=== PATIENT | female | born 1965 | race Caucasian/White ===

== ENCOUNTER → 2018-11-05 11:58 | Outpatient (CLI) | payer OTHER, SELFPAY ==
[2018-11-08 18:38] LABS: Alternaria tenuis <0.10 kU/L (Class 0); Ash, White <0.10 kU/L (Class 0); Aspergillus fumigatus 0.15 kU/L (Class 0/I); Bermuda Grass <0.10 kU/L (Class 0); Birch <0.10 kU/L (Class 0); Black Walnut <0.10 kU/L (Class 0); Cat Hair / Dander,Stand <0.10 kU/L (Class 0); Cedar, Mountain <0.10 kU/L (Class 0); Cladosporium herbarum <0.10 kU/L (Class 0); Cockroach, American <0.10 kU/L (Class 0); Cottonwood <0.10 kU/L (Class 0); D farinae Mite <0.10 kU/L (Class 0); D pteronyssinus <0.10 kU/L (Class 0); Dog Epithelia <0.10 kU/L (Class 0); Elm, American White <0.10 kU/L (Class 0); Immunoglobulin E 16 IU/mL (0-100); Maple/Box Elder <0.10 kU/L (Class 0); Mulberry, White <0.10 kU/L (Class 0); Oak, White <0.10 kU/L (Class 0); Pecan <0.10 kU/L (Class 0); Penicillium Notatum <0.10 kU/L (Class 0); Pigweed, Rough <0.10 kU/L (Class 0); Ragweed, Short/Common <0.10 kU/L (Class 0); Russian Thistle <0.10 kU/L (Class 0); Sheep Sorrel <0.10 kU/L (Class 0); Sycamore, American <0.10 kU/L (Class 0); Timothy Grass <0.10 kU/L (Class 0)
[2018-11-08 20:06] LABS: Clam <0.10 kU/L (Class 0); Codfish <0.10 kU/L (Class 0); Corn <0.10 kU/L (Class 0); Egg, White <0.10 kU/L (Class 0); Milk (Cow) <0.10 kU/L (Class 0); Peanut <0.10 kU/L (Class 0); SCALLOP <0.10 kU/L (Class 0); SESAME SEED <0.10 kU/L (Class 0); Shrimp <0.10 kU/L (Class 0); Soybean <0.10 kU/L (Class 0); Walnut, (Food) <0.10 kU/L (Class 0); Wheat <0.10 kU/L (Class 0)
[2018-11-09 11:25] LABS: Mouse Urine <0.10 kU/L (Class 0)
[2018-11-09 11:27] LABS: Pork <0.10 kU/L (Class 0)
--- OUTSIDE RECORDS SUMMARY | 2019-01-10 08:06 | XMS RPT_ITS ---
:1965 Author Organization OHIP Care Team Providers Name Role Phone ARMANDO ANSARI CNP Attending Unavailable CALR REIS, GERSON H. Primary Care Unavailable RUFINO ANSARI CNPBY E. Attending Unavailable CARL REIS, GERSON Dickey Primary Care Unavailable ELAN GUZMÁN, ARMANDO Cortez Attending Unavailable CARL REIS, GERSON Dickey Primary Care Unavailable [facility], [place] MIGUEL ANGEL BeckettNico Attending Unavailable CARL REIS, GERSON Dickey Primary Care Unavailable [facility], [place]. MICHELLE Hunter Attending Unavailable CARL REIS, GERSON Dickey Primary Care Unavailable TEQUILA CASTRO MD Attending Unavailable [facility], Nico MIGUEL ANGELRAY Harrison Primary Care Unavailable ARMANDO ANSARI ([facility]) Attending Unavailable ARMANDO ANSARI ([facility]) Referring Unavailable ARMANDO ANSARI ([facility]) Attending Unavailable ARMANDO ANSARI ([facility]) Referring Unavailable Rafael Salcedo Attending Unavailable Rafael Salcedo Referring Unavailable Miguel Angel Doherty SOUS CHEF KITCHEN MANAGER-C Primary Care Unavailable PROBLEMS PROBLEMS DATE TYPE CONDITION / CODE ATTENDING STATUS SOURCE 11/05/2018 Unknown T78.40XA - Allergy, Matias Rafael Active [place] unspecified, initial Community encounter / Hospital T78.40XA(ICD-10) Repository 02/28/2018 Admitting Mixed hyperlipidemia [facility], Active [facility] Diagnosis / E78.2(ICD-10) . MIGUEL ANGEL S. [place] Repository 02/28/2018 Admitting Hypothyroidism, [facility], Active [facility] Diagnosis unspecified / [place]. MIGUEL ANGEL S. [facility] E03.9(ICD-10) Repository 11/28/2017 Active Unknown / ELAN, Active [place] JARAD(Unknown) ARMANDO (SURFACE MINER) [facility] [place] Repository PROCEDURES PROCEDURES No Procedure Records FoundRESULTS RESULTS ALLERGEN RESP. AREA 5 Collected: 11/05/2018 Status: F Source: [place] [facility] TYPE CODE TESTS RESULT OUT OF RANGE REFERENCE UNITS LAB L5500.8000 0-100 IU/mL Normal TOTAL igE 16 LAB L5500.9900 . Normal RAST COMMENT Comment Result Comment: Levels of Specific IgE Class Description of Class ----- < 0.10 0 Negative 0.10 - 0.31 0/I Equivocal/Low 0.32 - 0.55 I Low 0.56 - 1.40 II Moderate 1.41 - 3.90 III High 3.91 - 19.00 IV Very High 19.01 - 100.00 V Very High >100.00 Very High LAB L5510.0040 Class 0 kU/L CAT HAIR/DANDER Normal <0.10 LAB L5510.0070 Class 0 kU/L DOG EPITHELIA Normal <0.10 LAB L5520.0020 Class 0 kU/L D FARINAE MITE Normal <0.10 LAB L5520.0030 Class 0 kU/L D PTERONYSSINUS Normal <0.10 LAB L5540.0020 Class 0 kU/L BERMUDA GRASS Normal <0.10 LAB L5540.0190 Class 0 kU/L LANCE GRASS Normal <0.10 LAB L5550.0020 Class 0 kU/L ALTERNARIA TEN Normal <0.10 LAB L5550.0040 Class 0/I kU/L ASPERGILLUS FUM High 0.15 LAB L5550.0140 Class 0 kU/L CLADOSPOR HERB Normal <0.10 LAB L5550.0340 Class 0 kU/L PEN Notatum Normal <0.10 LAB L5555.0380 Class 0 kU/L COCKROACH,AMER Normal <0.10 LAB L5555.0410 Class 0 kU/L Mouse Urine Normal <0.10 Result Comment: Performed at: [address] [id number] [employer]: Kellen Talavera MD, Phone: [phone] LAB L5560.0050 Class 0 kU/L YANELI, Normal WHITE <0.10 LAB L5560.0100 Class 0 kU/L BIRCH Normal <0.10 LAB L5560.0110 Class 0 kU/L CEDAR, Normal MOUNTAIN <0.10 LAB L5560.0140 Class 0 kU/L Normal COTTONWOOD <0.10 LAB L5560.0170 Class 0 kU/L ELM,AMER Normal WHITE <0.10 LAB L5560.0310 Class 0 kU/L Normal MAPLE/BOX ELDER <0.10 LAB L5560.0371 Class 0 kU/L Normal MULBERRY, WHITE <0.10 LAB L5560.0400 Class 0 kU/L OAK, Normal WHITE <0.10 LAB L5560.0440 Class 0 kU/L PECAN Normal <0.10 LAB L5560.0550 Class 0 kU/L Normal SYCAMORE, AMER <0.10 LAB L5560.0570 Class 0 kU/L BLACK Normal WALNUT <0.10 LAB L5580.0210 Class 0 kU/L PIGWEED, Normal ROUGH <0.10 LAB L5580.0260 Class 0 kU/L RAGWEED Normal SH/COM <0.10 LAB L5580.0320 Class 0 kU/L SHEEP Normal SORREL <0.10 LAB L5580.0360 Class 0 kU/L JORDANIAN Normal THISTLE <0.10 Performed By: #### L5500.0700 #### [facility] (refer to report for specific site) refer to report for address and phone number ALLERGEN, FOOD PROFILE Collected: 11/05/2018 Status: F Source: [place] 12:23 PM [facility] REPOSITORY TYPE CODE TESTS RESULT OUT OF RANGE REFERENCE UNITS LAB L5500.3002 Class 0 kU/L Normal MILK (COW) <0.10 LAB L5500.3004 Class 0 kU/L Normal WHEAT <0.10 LAB L5500.3008 Class 0 kU/L Normal CORN <0.10 LAB L5500.3013 Class 0 kU/L Normal PEANUT <0.10 LAB L5500.3014 Class 0 kU/L Normal SOYBEAN <0.10 LAB L5500.8100 . Normal RAST COMMENT Comment Result Comment: Levels of Specific IgE Class Description of Class ----- < 0.10 0 Negative 0.10 - 0.31 0/I Equivocal/Low 0.32 - 0.55 I Low 0.56 - 1.40 II Moderate 1.41 - 3.90 III High 3.91 - 19.00 IV Very High 19.01 - 100.00 V Very High >100.00 Very High LAB L5530.0430 Class 0 kU/L Normal CLAM <0.10 LAB L5530.0460 Class 0 kU/L Normal CODFISH <0.10 LAB L5530.0570 Class 0 kU/L Normal EGG,WHITE <0.10 LAB L5530.1430 Class 0 kU/L Normal Scallop <0.10 LAB L5530.1440 Class 0 kU/L Normal Sesame Seed <0.10 LAB L5530.1450 Class 0 kU/L Normal SHRIMP <0.10 LAB L5530.1650 Class 0 kU/L Normal WALNUT <0.10 Performed By: #### L5500.0410, L5530.1319 #### [facility] (refer to report for specific site) refer to report for address and phone number PORK Collected: 11/05/2018 Status: F Source: [place] 12:23 PM [facility] REPOSITORY TYPE CODE TESTS RESULT OUT OF RANGE REFERENCE UNITS LAB L5530.1320 Class 0 kU/L Normal PORK <0.10 Result Comment: Performed at: [facility] [address] [id number] [employer]: Kellen Talavera MD, Phone: [phone] Performed By: #### L5500.0410, L5530.1319 #### [facility] (refer to report for specific site) refer to report for address and phone number CNOVSP Observed: 05/29/2018 Status: COMPLETED Source: [place] 10:[address] [facility] REPOSITORY Visit (SP) Office (HEMAWS) NAOMI CASTRO ([id number]) 1965 F Date Time Provider Department 05/29/18 10:00 AM ARMANDO ANSARI ([facility]) SIMONE During your visit today, we recorded the following information about you: Temperature Pulse Blood pressure Weight 97.9 degrees 90/minute 133/79 68 kg Armando Ansari APRN.CNP 05/29/2018 1:27 PM Signed Chief Complaint Patient presents with: Established Patient HPI: Naomi Castro is a 52 year old female who presents here today for follow up breast cancer. H/o abnormality of the right breast discovered on a screening mammogram performed in July 2012. Was seen by a general surgeon and biopsy done. ?? Pathology--Invasive carcinoma. Was told would need b/l mastectomy. Patient sought second opinion. ?? An MRI of the breasts reveal the left breast to be normal. There was a 0.7 x 1.1 x 0.8 cm oval focus of enhancement in the right breast at the 6:00 middle depth. ?? Underwent partial mastectomy on 09/24/12. The pathology revealed that there was an invasive moderately differentiated ductal carcinoma with associated high-grade ductal carcinoma in situ, solid type. The tumor measured 8 mm. The inferior and lateral margins were positive for tumor and additional excision of the right superior and right medial margins revealed benign breast tissue. A total of 4 lymph nodes 2 of which were labeled sentinel lymph nodes, were all negative for disease. Additional pathologic specimens included right posterior margins at the 6 and 7:00 positions. Both revealed benign breast tissue. A right lateral margin reexcision revealed DCIS within a half a millimeter of the resected margin. Estrogen receptors were quantified at 80%. Progesterone receptors were negative and HER-2 was non-amplified by fish testing with a HER-2 to CEP 17 ratio 1.3-1. ?? The patient underwent reexcision of the right margins on 10/07/12. The pathology revealed that the right anterior margin contained biopsy site changes there were negative for residual malignancy. The lateral margin showed biopsy site changes and a few scattered ducts with residual DCIS approaching a half a millimeter from the inked margin. The inferior margin showed biopsy changes negative for residual malignancy in the right reexcision inferior/lateral margin revealed no evidence of malignancy. Had been on estradiol for 4 years. ?? Completed AC/Taxol. Radiation:04/13/13 to 05/29/13. ?? Started arimidex 06/01/2013. Stopped April 2015 d/t body aches/pains. ?? Current therapy:tamoxifen. ? H/o breast reduction 2004. ? No complaints. Pt. had breast MRI done at [facility] December 2017-Neg. per pt. report. ? Appetite:good Energy level:pretty good babysits her granddaughter 4 days per week Denies fevers or recent illness. Resp:denies cough or sob, +congestion?with year round allergies Cardiac:denies chest pain/palpitations GI:denies abd pain, n/v, moving bowels regularly :denies dysuria/hematuria Extrem:denies pain to back/bones/joints, occ. L leg sciatica Endo:+hot flashes they are less but down to one per day Neuro:denies neuropathy Skin:denies rashes/lesions Heme:denies bleeding The ROS is otherwise negative. Past medical history, appointments, medications, allergies reviewed. No changes. EXAM: BP 133/79 Pulse 90 Temp 36.6 ?C (97.9 ?F) (Temporal Artery) Wt 68 kg (150 lb) BMI 28.11 kg/m? APPEARANCE Well appearing, alert, in no acute distress, well- hydrated, well nourished. HEART RRR with normal S1 and S2, no murmurs LUNG clear to auscultation BREAST FEMALE R 2cm tender mass at 7 o'clock-stable (negative on breast MRI and US), L no mass/nodule LYMPH NODES No cervical lymphadenopathy, No supraclavicular lymphadenopathy and No axillary lymphadenopathy. ABDOMEN bowel sounds normoactive, no bruits, soft, non-tender, non-distended, without organomegaly or palpable masses EXTREMITIES No edema NEURO Awake, alert and oriented x 3, Normal gait and No involuntary motions. SKIN Skin color, texture, turgor normal, no suspicious rashes or lesions ASSESSMENT/PLAN: 1. Invasive ductal carcinoma of right breast in female (HCC) - ICD9: 174.9, ICD10: C50.911 (primary diagnosis) pT1b N0 (0 of 4 LNs) MX ER positive, NH negative, HER2 non- amplified invasive ductal carcinoma of the right breast. 2. Encounter for screening mammogram for high-risk patient - ICD9: V76.11, ICD10: Z12.31 - No new findings on exam. - Tolerating tamoxifen well. Continue. Will complete 5 years of combined AI/tamoxifen therapy at the end of this month. - Please have pt. sign med. release to obtain breast MRI results from [facility]. - ?Yearly screening mammogram due in Jun. Pt. prefers to have this done at [facility]. - ?Follow up as needed-pending Mammogram. Pt. will follow up with PCP for yearly mammogram/CBE. - ?Pt. aware to call office with any questions/concerns. The patient indicates understanding of these issues and agrees with the plan. Armando Ansari APRN.SURFACE MINER Referring Provider: ARMANDO ANSARI ([facility]) [[id number]] Allergies As of Date: 05/29/2018 Noted Allergy Reaction ADHESIVE TAPE (ROSINS) 12/23/2012 2 - Rash ASPIRIN 10/28/2012 4 - Hives 7 - Swelling BIAXIN (CLARITHROMYCIN) 05/30/2016 4 - Hives 7 - Swelling CEFTIN (CEFUROXIME AXETIL) 10/28/2012 8 - GI Upset 11 - Vomiting IBUPROFEN 10/28/2012 4 - Hives 7 - Swelling LATEX 10/28/2012 2 - Rash LEVAQUIN (LEVOFLOXACIN) 10/28/2012 7 - Swelling MUSHROOM COMBINATION NO.1 10/28/2012 7 - Swelling Comments: Difficulty breathing PENICILLINS 10/28/2012 4 - Hives 7 - Swelling SHELLFISH 10/28/2012 7 - Swelling Comments: Difficulty breathing SULFA (SULFONAMIDE ANTIBIOTICS) 08/03/2008 2 - Rash VICODIN (HYDROCODONE-ACETAMINOPHE*10/28/2012 4 - Hives 7 - Swelling Date Reviewed: 05/29/2018 Reviewed by: Armando ([facility]) Elan - Fully Assessed Reason for Visit: Established Patient [175] Primary Visit Diagnosis:Invasive ductal carcinoma of right breast in female (HCC) [C50.911] Other Visit Diagnosis:Encounter for screening mammogram for high-risk patient [Z12.31] Order(s):ergocalciferol, vitamin D2, (VITAMIN D) 50,000 unit capsuleTake 1 capsule by mouth once each week.Disp: 12 capsuleRfl: 3 DALTON SCREENING W PAULIE [[id number]] Order #: [id number] FUTURE Follow-up and Disposition History Recorded Prescriptions as of 05/29/2018 Sig: CALCIUM + D ORAL Take 1 tablet by mouth once d* LEVOTHYROXINE 88 MCG TABLET Take 88 mcg by mouth once cinhtia* ALENDRONATE 70 MG TABLET Take 70 mg by mouth once each* ERGOCALCIFEROL (VITAMIN D2) 5* Take 1 capsule by mouth once * TAMOXIFEN 20 MG TABLET take 1 tablet by mouth once d* MOMETASONE 220 MCG (120 DOSES* Inhale as instructed as need* FLAXSEED 1,000 MG CAPSULE Take 1 capsule by mouth once * FLUTICASONE 50 MCG/ACTUATION * Use 2 Sprays in the nose twic* ACETAMINOPHEN 500 MG TABLET Take 1,000 mg by mouth every * ANN-D 24 HOUR 180 MG-240 * Take one(1) tablet daily. Medication notes this encounter CALTRATE GUMMY BITES ORAL >> Austen Jean Baptiste MA 05/29/2018 9:53 AM >> AUSTEN JEAN BAPTISTE MA [place] May 29, 2018 9:53 AM Not taking LEVOTHYROXINE 75 MCG TABLET >> Austen Jean Baptiste MA 05/29/2018 9:53 AM >> AUSTEN JEAN BAPTISTE MA Alvina May 29, 2018 9:53 AM No longer taking this strength. Problem List As Of Date 05/29/2018 Noted Resolved FEMALE STRESS INCONTINENCE [N39.3] INVALID FOR* Breast cancer [C50.919] INVALID FOR* Drug induced neutropenia [D70.2] INVALID FOR* Vitamin D deficiency [E55.9] INVALID FOR* Invasive ductal carcinoma of right breast in fe*INVALID FOR* Encounter Status:Closed by ARMANDO ANSARI CNP on 05/29/18 PROGRESS Observed: 05/29/2018 Status: COMPLETED Source: [place] 9:[address] [facility] REPOSITORY O ID: [id number] Author: Armando Colón) Elan Service: (none) Author Type: Nurse Practitioner Type: Progress Notes Filed: 05/29/2018 1:27 PM Note Text: Chief Complaint Patient presents with: Established Patient HPI: Naomi Castro is a 52 year old female who presents here today for follow up breast cancer. H/o abnormality of the right breast discovered on a screening mammogram performed in July 2012. Was seen by a general surgeon and biopsy done. ?? Pathology--Invasive carcinoma. Was told would need b/l mastectomy. Patient sought second opinion. ?? An MRI of the breasts reveal the left breast to be normal. There was a 0.7 x 1.1 x 0.8 cm oval focus of enhancement in the right breast at the 6:00 middle depth. ?? Underwent partial mastectomy on 09/24/12. The pathology revealed that there was an invasive moderately differentiated ductal carcinoma with associated high-grade ductal carcinoma in situ, solid type. The tumor measured 8 mm. The inferior and lateral margins were positive for tumor and additional excision of the right superior and right medial margins revealed benign breast tissue. A total of 4 lymph nodes 2 of which were labeled sentinel lymph nodes, were all negative for disease. Additional pathologic specimens included right posterior margins at the 6 and 7:00 positions. Both revealed benign breast tissue. A right lateral margin reexcision revealed DCIS within a half a millimeter of the resected margin. Estrogen receptors were quantified at 80%. Progesterone receptors were negative and HER-2 was non-amplified by fish testing with a HER-2 to CEP 17 ratio 1.3-1. ?? The patient underwent reexcision of the right margins on 10/07/12. The pathology revealed that the right anterior margin contained biopsy site changes there were negative for residual malignancy. The lateral margin showed biopsy site changes and a few scattered ducts with residual DCIS approaching a half a millimeter from the inked margin. The inferior margin showed biopsy changes negative for residual malignancy in the right reexcision inferior/lateral margin revealed no evidence of malignancy. Had been on estradiol for 4 years. ?? Completed AC/Taxol. Radiation:04/13/13 to 05/29/13. ?? Started arimidex 06/01/2013. Stopped April 2015 d/t body aches/pains. ?? Current therapy:tamoxifen. ? H/o breast reduction 2004. ? No complaints. Pt. had breast MRI done at [facility] December 2017-Neg. per pt. report. ? Appetite:good Energy level:pretty good babysits her granddaughter 4 days per week Denies fevers or recent illness. Resp:denies cough or sob, +congestion?with year round allergies Cardiac:denies chest pain/palpitations GI:denies abd pain, n/v, moving bowels regularly :denies dysuria/hematuria Extrem:denies pain to back/bones/joints, occ. L leg sciatica Endo:+hot flashes they are less but down to one per day Neuro:denies neuropathy Skin:denies rashes/lesions Heme:denies bleeding The ROS is otherwise negative. Past medical history, appointments, medications, allergies reviewed. No changes. EXAM: BP 133/79 Pulse 90 Temp 36.6 ?C (97.9 ?F) (Temporal Artery) Wt 68 kg (150 lb) BMI 28.11 kg/m? APPEARANCE Well appearing, alert, in no acute distress, well-hydrated, well nourished. HEART RRR with normal S1 and S2, no murmurs LUNG clear to auscultation BREAST FEMALE R 2cm tender mass at 7 o'clock-stable (negative on breast MRI and US), L no mass/nodule LYMPH NODES No cervical lymphadenopathy, No supraclavicular lymphadenopathy and No axillary lymphadenopathy. ABDOMEN bowel sounds normoactive, no bruits, soft, non-tender, non-distended, without organomegaly or palpable masses EXTREMITIES No edema NEURO Awake, alert and oriented x 3, Normal gait and No involuntary motions. SKIN Skin color, texture, turgor normal, no suspicious rashes or lesions ASSESSMENT/PLAN: 1. Invasive ductal carcinoma of right breast in female (HCC) - ICD9: 174.9, ICD10: C50.911 (primary diagnosis) pT1b N0 (0 of 4 LNs) MX ER positive, NH negative, HER2 non-amplified invasive ductal carcinoma of the right breast. 2. Encounter for screening mammogram for high-risk patient - ICD9: V76.11, ICD10: Z12.31 - No new findings on exam. - Tolerating tamoxifen well. Continue. Will complete 5 years of combined AI/tamoxifen therapy at the end of this month. - Please have pt. sign med. release to obtain breast MRI results from [facility]. - ?Yearly screening mammogram due in Jun. Pt. prefers to have this done at [facility]. - ?Follow up as needed-pending Mammogram. Pt. will follow up with PCP for yearly mammogram/CBE. - ?Pt. aware to call office with any questions/concerns. The patient indicates understanding of these issues and agrees with the plan. Armando Ansari APRN.SURFACE MINER TSH Collected: 05/08/2018 Status: F Source: [facility] 8:37 AM [facility] REPOSITORY TYPE CODE TESTS RESULT OUT OF RANGE REFERENCE UNITS LAB TSH(LOINC) 0.27-4.20 mcIU/mL High TSH 4.85 Result Comment: Above normal(expected)range Performed By: #### TSH #### [address] [place], [place] [address] MRI BREAST W/ + W/O Observed: 03/06/2018 Status: F Source: [facility] CONTRAST BILATERAL 12:45 PM [facility] REPOSITORY ORIGINAL FROM: [facility] [address] [place] [address] PROCEDURE FOR: NAOMI CASTRO [address] [place] [address] Home: PID#: [id number] Exam#: [id number] : 1965 Age: 52 TO: ARMANDO ANSARI SURFACE MINER [address] [place] [address] #[id number] BREAST MRI OF BOTH BREASTS - WITH CAD: 03/06/2018 CLINICAL: INVASIVE DUCTAL CARCINOMA OF RIGHT BREAST. Comparison is made to exams dated: 12/05/2017 ultrasound, 12/05/2017 mammogram, and 06/19/2017 mammogram - [facility]. Gadolinium contrast calibrated to patient weight was injected. Axial T2 and pre and post contrast T1 images were obtained. Post processing was performed including computer generated subtraction, color p arametric mapping, and 3D multiplanar reconstruction. Current study was also evaluated with a Computer Aided Detection (CAD) system. There is no abnormality seen in the right breast to correspond with the palpable abnormality. Nodular enhancement with benign characteristics is seen in both breasts compatible with benign fibroglandular parenchyma. No suspicious enhancing mass is identified in either breast. No enlarged axillar y or internal mammary nodes are seen. IMPRESSION: BENIGN There is no abnormality seen in the right breast to correspond with the palpable abnormality. Clinical followup is recommended. No evidence of a breast carcinoma measuring 3 mm in size or greater. Retur n to annual mammogram screening schedule is recommended. I have personally reviewed the images of the examination and agree with the findings and interpretation. GANGA ojedag,yz/:03/06/2018 15:11:18 copy to: MIGUEL ANGEL APPIAH, ph: [phone], fax: [phone] Worm Farmer: ILIR ANN (), [facility] letter sent: Normal BI-RADS 1&2 MRI BI-RADS: 2 Benign CBC Collected: 02/28/2018 Status: F Source: [facility] 9:29 AM [facility] REPOSITORY TYPE CODE TESTS RESULT OUT OF REFERENCE UNITS RANGE LAB WBC(LOINC) 4.60-10.80 10 3/mcL WBC 9.30 LAB RBCCT(LOINC 4.20-5.40 10 6/mcL ) RBC 5.07 LAB HGB(LOINC) 12.0-16.0 G/dL Hgb 14.6 LAB HCT(LOINC) 37.0-47.0 % Hct 43.9 LAB MCV(LOINC) 80.0-94.0 fL MCV 86.7 LAB MCH(LOINC) 27.0-31.2 pg MCH 28.9 LAB MCHC(LOINC) 33.0-37.0 G/dL MCHC 33.3 LAB RDW(LOINC) 11.5-14.5 % RDW 13.3 LAB PLT(LOINC) 130-400 10 3/mcL Platelet 259 LAB MPV(LOINC) 7.4-10.4 fL MPV 8.9 Performed By: #### CBC, ADIFF, ANEU, LIPID, CMP, GFR, TSH #### Kevin [address] [address] .AUTO DIFF Collected: 02/28/2018 Status: F Source: [facility] 9:29 AM [facility] REPOSITORY TYPE CODE TESTS RESULT OUT OF REFERENCE UNITS RANGE LAB ELIZABETH(LOINC) 37.0-80.0 % Neutrophil % 60.5 LAB LYM(LOINC) 10.0-50.0 % Lymphocyte % 28.4 LAB MON(LOINC) 1.7-13.0 % Monocyte % 7.1 LAB EO(LOINC) 0.0-7.0 % Eosinophil % 3.9 LAB BAS(LOINC) 0.0-2.5 % Basophil % 0.1 LAB ABLYM(LOIN 0.77-3.85 10 3/mcL C) Lymphocyte, 2.60 Absolute LAB OLIVIER(LOINC 0.15-1.00 10 3/mcL ) Monocyte, 0.70 Absolute LAB AEOS(LOINC 0.00-0.40 10 3/mcL ) Eosinophil, 0.40 Absolute LAB ABAS(LOINC 0.00-0.19 10 3/mcL ) Basophil, 0.00 Absolute Performed By: #### CBC, ADIFF, ANEU, LIPID, CMP, GFR, TSH #### [address] [place], [place] [address] .NEUABS Collected: 02/28/2018 Status: F Source: [facility] 9:29 AM [facility] REPOSITORY TYPE CODE TESTS RESULT OUT OF REFERENCE UNITS RANGE LAB ANEU(LOINC) 2.85-6.16 10 3/mcL Neutrophil, 5.60 Absolute Performed By: #### CBC, ADIFF, ANEU, LIPID, CMP, GFR, TSH #### [address] [place], [place] [address] LIPID Collected: 02/28/2018 Status: F Source: [facility] 9:29 AM [facility] REPOSITORY TYPE CODE TESTS RESULT OUT OF REFERENCE UNITS RANGE LAB CHOL(LOINC 131-200 mg/dL ) Cholesterol 181 Result Comment: Cholesterol Reference Interval: Less than 200 Desirable 200-239 Borderline high risk 240 and above High risk LAB TRIG(LOINC) 40-150 mg/dL Triglycerides 108 Result Comment: Triglyceride Reference Interval: Less than 150 Normal 150-199 Borderline high risk 200-499 High risk 500 or higher Very high risk LAB HD(LOINC) 35-90 mg/dL HDL Cholesterol 52 Result Comment: HDL Reference Interval: Less than 40 Low - high risk 60 or above Optimal/lowers risk LAB LDL(LOINC) 0-130 mg/dL LDL Cholesterol 107 Result Comment: LDL is a calculated result and requires a 12-hr fast. LDL Reference Interval: Less than 100 Optimal 100-129 Near or above optimal 130-159 Borderline high risk 160-189 High risk 190 and above Very high risk Performed By: #### CBC, ADIFF, ANEU, LIPID, CMP, GFR, TSH #### [address] [place], [place] [address] CMP Collected: 02/28/2018 Status: F Source: [facility] 9:29 AM [facility] REPOSITORY TYPE CODE TESTS RESULT OUT OF REFERENCE UNITS RANGE LAB GLU(LOINC) 70-105 mg/dL Glucose Level 103 LAB NA(LOINC) 136-146 mEq/L Sodium Level 138 LAB K(LOINC) 3.5-5.1 mEq/L Potassium Level 4.3 LAB CL(LOINC) 98-107 mEq/L Chloride 103 LAB CO2(LOINC) 22-29 mEq/L CO2 27 LAB EBAL(LOINC mEq/L ) Electrolyte Balance 8.0 LAB BUN(LOINC) 7.0-18.0 mg/dL BUN 16.4 LAB CRE(LOINC) 0.6-1.2 mg/dL Creatinine Lvl (s) 1.0 LAB BC(LOINC) 7-27 ratio BUN/Creatinine 16 Ratio LAB CA(LOINC) 8.4-10.2 mg/dL Calcium Lvl 9.6 LAB PROT(LOINC 6.0-8.3 G/dL ) Total Protein 7.4 LAB ALB(LOINC) 3.5-5.0 G/dL Albumin Level 4.4 LAB GLB(LOINC) G/dL Globulin 3.0 LAB AG(LOINC) 1.1-2.5 ratio A/G Ratio 1.5 LAB BILT(LOINC 0.2-1.0 mg/dL ) Bili Total 0.2 LAB AP(LOINC) 40-135 IU/L Alk Phos 73 LAB AST(LOINC) 10-40 IU/L AST/SGOT 24 LAB ALT(LOINC) 10-35 IU/L ALT/SGPT 29 Performed By: #### CBC, ADIFF, ANEU, LIPID, CMP, GFR, TSH #### [place] [address] .GFR Collected: 02/28/2018 Status: F Source: [facility] 9:29 AM FOUNDATION REPOSITORY TYPE CODE TESTS RESULT OUT OF REFERENCE UNITS RANGE LAB GFRAA(LOINC ml/min/1.73 ) sqm GFR 72 [place] Result Comment: GFR Population mean for , Non- Americans Ages 20-29 = 116 mL/min/1.73 sq.m. Ages 30-39 = 107 mL/min/1.73 sq.m. Ages 40-49 = 99 mL/min/1.73 sq.m. Ages 50-59 = 93 mL/min/1.73 sq.m. Ages 60-69 = 85 mL/min/1.73 sq.m. Ages 70+ = 75 mL/min/1.73 sq.m. Chronic Kidney Disease: Less than 60 mL/min/1.73 square meters End Stage Renal Disease: Less than 15 mL/min/1.73 square meters LAB GFRNO(LOINC) ml/min/1.73sqm GFR Non- 60 Result Comment: GFR Population mean for , Non- Americans Ages 20-29 = 116 mL/min/1.73 sq.m. Ages 30-39 = 107 mL/min/1.73 sq.m. Ages 40-49 = 99 mL/min/1.73 sq.m. Ages 50-59 = 93 mL/min/1.73 sq.m. Ages 60-69 = 85 mL/min/1.73 sq.m. Ages 70+ = 75 mL/min/1.73 sq.m. Chronic Kidney Disease: Less than 60 mL/min/1.73 square meters End Stage Renal Disease: Less than 15 mL/min/1.73 square meters Performed By: #### CBC, ADIFF, ANEU, LIPID, CMP, GFR, TSH #### [address] [address] TSH Collected: 02/28/2018 Status: F Source: [facility] 9:29 AM [facility] REPOSITORY TYPE CODE TESTS RESULT OUT OF RANGE REFERENCE UNITS LAB TSH(LOINC) 0.27-4.20 mcIU/mL High TSH 4.98 Result Comment: Above normal(expected)range Performed By: #### CBC, ADIFF, ANEU, LIPID, CMP, GFR, TSH #### [address] [address] US BREAST RIGHT Observed: 12/05/2017 Status: F Source: [facility] 9:00 AM [facility] REPOSITORY ORIGINAL FROM: [address] [address] PROCEDURE FOR: NAOMI CASTRO [address] [place] [address] Home: PID#: [id number] Exam#: [id number] : 1965 Age: 52 TO: ARMANDO ANSARI [facility] [address] [place] [address] #[id number] ULTRASOUND OF RIGHT BREAST: 12/05/2017 CLINICAL: PALPABLE LUMP RIGHT BREAST. Comparison is made to exams dated: 12/05/2017 mammogram, 06/19/2017 mammogram, and 07/04/2016 mammogram - [facility]. Color flow and real-time ultrasound of the right breast were performed. There is no sonographic abnormality to correspond to a reported palpable lesion. Postsurgical changes, including the patient's scar, is seen. No abnormal hypervascularity to this area is noted. IMPRESSION: BENIGN No significant abnormality. Clinical correlation and follow up is advised. If clinical concern persists, on MRI examination could be considered. Otherwise, return to annual mammogram screening/12 month follow up schedule is recommended. CANDICE LOVING MD cm/:12/05/2017 18:51:55 copy to: MIGUEL ANGEL DOHERTY SOUS [employer] KITCHEN MANAGER-C, ph: [phone], fax: [phone] Worm Farmer: KATE STANLEY RT (R) [facility] [[email or web address]], [facility] letter sent: Normal BI-RADS 1&2 Ultrasound BI-RADS: 2 Benign MA MAMMOGRAM Observed: 12/05/2017 Status: F Source: [facility] DIAGNOSTIC RIGHT 8:30 AM FOUNDATION REPOSITORY W/PAULIE ORIGINAL FROM: [facility] [address], [place] [address] PROCEDURE FOR: NAOMI CASTRO [address] [place] [address] Home: PID#: [id number] Exam#: [id number] : 1965 Age: 52 TO: ARMANDO ANSARI [facility] [address] [place] [address] #[id number] RIGHT DIGITAL DIAGNOSTIC MAMMOGRAM 3D/2D WITH CAD WITH MEDIOLATERAL MEDIOLATERAL OBLIQUE CRANIOCAUDAL: 12/05/2017 CLINICAL: PALPABLE LUMP RIGHT BREAST. Comparison is made to exams dated: 06/19/2017 mammogram and 07/04/2016 mammogram - [facility]. The tissue of the right breast is heterogeneously dense. Current study was also evaluated with a Computer Aided Detection (CAD) system. There is evidence of post surgical and radiation changes associated with the right breast. No significant masses, calcifications, or other findings are seen in the breast. IMPRESSION: INCOMPLETE: NEEDS ADDITIONAL IMAGING EVALUATION There is no mammographic abnormality seen in the right breast to correspond with the reported palpable abnormality; however, further workup with ultrasound is recommended. An ultrasound has been perform ed and will be reported separately. I have personally reviewed the images of the examination and agree with the findings and interpretation. CANDICE MCINTYRE MD cm,nf/:12/05/2017 09:12:04 copy to: MIGUEL ANGEL APPIAH, ph: [phone], fax: [phone] Worm Farmer: TUCKER PIZANO RT(R)(M)(CT) [facility] letter sent: Normal-Needs W/U BI-RADS 0 Mammogram BI-RADS: 0 Indeterminate PROGRESS Observed: 11/28/2017 Status: COMPLETED Source: [place] 10:[address] [facility] REPOSITORY HNO ID: [id number] Author: Armando Ansari Service: (none) Author Type: Nurse Practitioner Type: Progress Notes Filed: 11/29/2017 8:29 AM Note Text: Chief Complaint Patient presents with: Established Patient HPI: Naomi Castro is a 52 year old female who presents here today for breast cancer. H/o abnormality of the right breast discovered on a screening mammogram performed in July 2012. Was seen by a general surgeon and biopsy done. ?? Pathology--Invasive carcinoma. Was told would need b/l mastectomy. Patient sought second opinion. ?? An MRI of the breasts reveal the left breast to be normal. There was a 0.7 x 1.1 x 0.8 cm oval focus of enhancement in the right breast at the 6:00 middle depth. ?? Underwent partial mastectomy on 09/24/12. The pathology revealed that there was an invasive moderately differentiated ductal carcinoma with associated high-grade ductal carcinoma in situ, solid type. The tumor measured 8 mm. The inferior and lateral margins were positive for tumor and additional excision of the right superior and right medial margins revealed benign breast tissue. A total of 4 lymph nodes 2 of which were labeled sentinel lymph nodes, were all negative for disease. Additional pathologic specimens included right posterior margins at the 6 and 7:00 positions. Both revealed benign breast tissue. A right lateral margin reexcision revealed DCIS within a half a millimeter of the resected margin. Estrogen receptors were quantified at 80%. Progesterone receptors were negative and HER-2 was non-amplified by fish testing with a HER-2 to CEP 17 ratio 1.3-1. ?? The patient underwent reexcision of the right margins on 10/07/12. The pathology revealed that the right anterior margin contained biopsy site changes there were negative for residual malignancy. The lateral margin showed biopsy site changes and a few scattered ducts with residual DCIS approaching a half a millimeter from the inked margin. The inferior margin showed biopsy changes negative for residual malignancy in the right reexcision inferior/lateral margin revealed no evidence of malignancy. Had been on estradiol for 4 years. ?? Completed AC/Taxol. Radiation:04/13/13 to 05/29/13. ?? Started arimidex 06/01/2013. Stopped April 2015 d/t body aches/pains. ?? Current therapy:tamoxifen. ? H/o breast reduction 2004. ? No complaints. ? Appetite:good Energy level:pretty good Denies fevers or recent illness. Resp:denies cough or sob, +congestion?with year round allergies Cardiac:denies chest pain/palpitations GI:denies abd pain, n/v, moving bowels regularly :denies dysuria/hematuria Extrem:denies pain to back/bones/joints, occ. L leg sciatica Endo:daily hot flashes-stable, they do not wake pt. at night Neuro:denies neuropathy Skin:denies rashes/lesions Heme:denies bleeding The ROS is otherwise negative. Past medical history, appointments, medications, allergies reviewed. No changes. EXAM: BP 129/86 Pulse 104 Temp 36.4 ?C (97.6 ?F) Wt 69.4 kg (153 lb) BMI 28.67 kg/m2 APPEARANCE Well appearing, alert, in no acute distress, well-hydrated, well nourished. HEART RRR with normal S1 and S2, no murmurs LUNG clear to auscultation BREAST FEMALE R 2cm tender mass at 7 o'clock, L no mass/nodule LYMPH NODES No cervical lymphadenopathy, No supraclavicular lymphadenopathy and No axillary lymphadenopathy. ABDOMEN bowel sounds normoactive, no bruits, soft, non-tender, non-distended, without organomegaly or palpable masses EXTREMITIES No edema NEURO Awake, alert and oriented x 3, Normal gait and No involuntary motions. SKIN Skin color, texture, turgor normal, no suspicious rashes or lesions ASSESSMENT/PLAN: 1. Invasive ductal carcinoma of right breast in female (HCC) - ICD9: 174.9, ICD10: C50.911 (primary diagnosis) pT1b N0 (0 of 4 LNs) MX ER positive, NH negative, HER2 non-amplified invasive ductal carcinoma of the right breast. 2. Lump or mass in breast - ICD9: 611.72, ICD10: N63.0 - Tolerating tamoxifen well. Continue. - Yearly screening mammogram due in Jun. Pt. prefers to have this done at [facility]. - Tender R lower/outer breast mass. - R dx mamm/US at [facility]-soon. - Follow up in 6 months-pending R dx mamm/US. - Pt. aware to call office with any questions/concerns. The patient indicates understanding of these issues and agrees with the plan. Armando Ansari CNP CNOVSP Observed: 11/28/2017 Status: COMPLETED Source: [place] 10:[address] [facility] REPOSITORY Visit (SP) Office (SIMONE) NAOMI CASTRO ([id number]) 1965 F Date Time Provider Department 11/28/17 10:00 AM ARMANDO ANSARI) SIMONE During your visit today, we recorded the following information about you: Temperature Pulse Blood pressure Weight 97.6 degrees 104/minute 129/86 69.4 kg Kathy Henderson LPN, LPN 11/28/2017 10:15 AM Signed Est . Pt. 6 month f/u MACK Bethea CNP 11/29/2017 8:29 AM Signed Chief Complaint Patient presents with: Established Patient HPI: Naomi Castro is a 52 year old female who presents here today for breast cancer. H/o abnormality of the right breast discovered on a screening mammogram performed in July 2012. Was seen by a general surgeon and biopsy done. ?? Pathology--Invasive carcinoma. Was told would need b/l mastectomy. Patient sought second opinion. ?? An MRI of the breasts reveal the left breast to be normal. There was a 0.7 x 1.1 x 0.8 cm oval focus of enhancement in the right breast at the 6:00 middle depth. ?? Underwent partial mastectomy on 09/24/12. The pathology revealed that there was an invasive moderately differentiated ductal carcinoma with associated high-grade ductal carcinoma in situ, solid type. The tumor measured 8 mm. The inferior and lateral margins were positive for tumor and additional excision of the right superior and right medial margins revealed benign breast tissue. A total of 4 lymph nodes 2 of which were labeled sentinel lymph nodes, were all negative for disease. Additional pathologic specimens included right posterior margins at the 6 and 7:00 positions. Both revealed benign breast tissue. A right lateral margin reexcision revealed DCIS within a half a millimeter of the resected margin. Estrogen receptors were quantified at 80%. Progesterone receptors were negative and HER-2 was non-amplified by fish testing with a HER-2 to CEP 17 ratio 1.3-1. ?? The patient underwent reexcision of the right margins on 10/07/12. The pathology revealed that the right anterior margin contained biopsy site changes there were negative for residual malignancy. The lateral margin showed biopsy site changes and a few scattered ducts with residual DCIS approaching a half a millimeter from the inked margin. The inferior margin showed biopsy changes negative for residual malignancy in the right reexcision inferior/lateral margin revealed no evidence of malignancy. Had been on estradiol for 4 years. ?? Completed AC/Taxol. Radiation:04/13/13 to 05/29/13. ?? Started arimidex 06/01/2013. Stopped April 2015 d/t body aches/pains. ?? Current therapy:tamoxifen. ? H/o breast reduction 2004. ? No complaints. ? Appetite:good Energy level:ANDquot;pretty goodANDquot; Denies fevers or recent illness. Resp:denies cough or sob, +congestion?with year round allergies Cardiac:denies chest pain/palpitations GI:denies abd pain, n/v, moving bowels regularly :denies dysuria/hematuria Extrem:denies pain to back/bones/joints, occ. L leg sciatica Endo:daily hot flashes-stable, they do not wake pt. at night Neuro:denies neuropathy Skin:denies rashes/lesions Heme:denies bleeding The ROS is otherwise negative. Past medical history, appointments, medications, allergies reviewed. No changes. EXAM: BP 129/86 Pulse 104 Temp 36.4 ?C (97.6 ?F) Wt 69.4 kg (153 lb) BMI 28.67 kg/m2 APPEARANCE Well appearing, alert, in no acute distress, well- hydrated, well nourished. HEART RRR with normal S1 and S2, no murmurs LUNG clear to auscultation BREAST FEMALE R 2cm tender mass at 7 o'clock, L no mass/nodule LYMPH NODES No cervical lymphadenopathy, No supraclavicular lymphadenopathy and No axillary lymphadenopathy. ABDOMEN bowel sounds normoactive, no bruits, soft, non-tender, non-distended, without organomegaly or palpable masses EXTREMITIES No edema NEURO Awake, alert and oriented x 3, Normal gait and No involuntary motions. SKIN Skin color, texture, turgor normal, no suspicious rashes or lesions ASSESSMENT/PLAN: 1. Invasive ductal carcinoma of right breast in female (HCC) - ICD9: 174.9, ICD10: C50.911 (primary diagnosis) pT1b N0 (0 of 4 LNs) MX ER positive, NH negative, HER2 non- amplified invasive ductal carcinoma of the right breast. 2. Lump or mass in breast - ICD9: 611.72, ICD10: N63.0 - Tolerating tamoxifen well. Continue. - Yearly screening mammogram due in Jun. Pt. prefers to have this done at [facility]. - Tender R lower/outer breast mass. - R dx mamm/US at [facility]-soon. - Follow up in 6 months-pending R dx mamm/US. - Pt. aware to call office with any questions/concerns. The patient indicates understanding of these issues and agrees with the plan. Armando Ansari CNP Referring Provider: ARMANDO ANSARI (SURFACE MINER) [[id number]] Allergies As of Date: 11/28/2017 Noted Allergy Reaction ADHESIVE TAPE (ROSINS) 12/23/2012 2 - Rash ASPIRIN 10/28/2012 4 - Hives 7 - Swelling BIAXIN (CLARITHROMYCIN) 05/30/2016 4 - Hives 7 - Swelling CEFTIN (CEFUROXIME AXETIL) 10/28/2012 8 - GI Upset 11 - Vomiting IBUPROFEN 10/28/2012 4 - Hives 7 - Swelling LATEX 10/28/2012 2 - Rash LEVAQUIN (LEVOFLOXACIN) 10/28/2012 7 - Swelling MUSHROOM COMBINATION NO.1 10/28/2012 7 - Swelling Comments: Difficulty breathing PENICILLINS 10/28/2012 4 - Hives 7 - Swelling SHELLFISH 10/28/2012 7 - Swelling Comments: Difficulty breathing SULFA (SULFONAMIDE ANTIBIOTICS) 08/03/2008 2 - Rash VICODIN (HYDROCODONE-ACETAMINOPHE*10/28/2012 4 - Hives 7 - Swelling Date Reviewed: 11/28/2017 Reviewed by: Armando ([facility]) Elan - Fully Assessed Reason for Visit: Established Patient [175] Primary Visit Diagnosis:Invasive ductal carcinoma of right breast in female (HCC) [C50.911] Other Visit Diagnosis:Lump or mass in breast [N63.0] Order(s):[facility]IC RT [[id number]] Order #: [id number] FUTURE BREAST LTD RT [[id number]] Order #: [id number] FUTURE Follow-up and Disposition History Recorded Prescriptions as of 11/28/2017 Sig: ERGOCALCIFEROL (VITAMIN D2) 5* Take 1 capsule by mouth once * CALTRATE GUMMY BITES ORAL Take 2 Each by mouth once cinthia* TAMOXIFEN 20 MG TABLET take 1 tablet by mouth once d* LEVOTHYROXINE 75 MCG TABLET Take 1 tablet by mouth daily * MOMETASONE 220 MCG (120 DOSES* Inhale as instructed as need* FLAXSEED 1,000 MG CAPSULE Take 1 capsule by mouth once * FLUTICASONE 50 MCG/ACTUATION * Use 2 Sprays in the nose twic* ACETAMINOPHEN 500 MG TABLET Take 1,000 mg by mouth every * ANN-D 24 HOUR 180 MG-240 * Take one(1) tablet daily. Medication notes this encounter CALTRATE GUMMY BITES ORAL >> Kathy Henderson LPN, MACK 11/28/2017 9:55 AM >> KATHY HENDERSON [place] Nov 28, 2017 9:55 AM Taking one daily Problem List As Of Date 11/28/2017 Noted Resolved FEMALE STRESS INCONTINENCE [N39.3] INVALID FOR* Breast cancer [C50.919] INVALID FOR* Drug induced neutropenia [D70.2] INVALID FOR* Vitamin D deficiency [E55.9] INVALID FOR* Invasive ductal carcinoma of right breast in fe*INVALID FOR* Visit Notes: >> Kathy Hernandez (Professor Of Biochemistry) JagMACK duvall [place] Nov 28, 2017 9:55 AM Status: Signed Est . Pt. 6 month f/u Kathy Hernandez MACK Henderson Encounter Status:Closed by ARMANDO ANSARI CNP on 11/29/17 ALLERGIES ALLERGIES DATE TYPE / NAME / CODE REACTION SEVERITY SOURCE CODE 05/30/2016 DRUG CLARITHROMYCIN HIVES [facility] INGREDI[address] [place] [id number](SN Repository OMED CT) 12/23/2012 Chemical/4 ADHESIVE TAPE RASH [facility] [id number](S (ROSINS) [place] NOMED CT) Repository 10/28/2012 DRUG ASPIRIN HIVES [facility] INGREDI/ [place] 1980250(SN Repository OMED CT) 10/28/2012 DRUG CEFUROXIME AXETIL GI UPSET [facility] INGREDINorth [facility] [place] 6239294(SN Repository OMED CT) 10/28/2012 DRUG IBUPROFEN HIVES [facility] INGREDI41 [place] 3672925(SN Repository OMED CT) 10/28/2012 DRUG LATEX RASH [facility] [place] 4570410(SN Repository OMED CT) 10/28/2012 DRUG LEVOFLOXACIN SWELLING [facility] INGREDI41 [place] 3214448(SN Repository OMED CT) 10/28/2012 DRUG MUSHROOM COMBINATION SWELLING [facility] INGREDI/ NO.1 [place] 1066055(SN Repository OMED CT) 10/28/2012 Drug PENICILLINS HIVES [facility] Class/4195 [place] [address](SNOM Repository ED CT) 10/28/2012 Food/05164 SHELLFISH SWELLING [facility] 1000(SNOME [place] D CT) Repository 10/28/2012 DRUG/70860 HYDROCODONE-ACETAMIN HIVES [facility] 1003(SNOME OPHEN [place] D CT) Repository 08/03/2008 Drug SULFA (SULFONAMIDE RASH [facility] Class/4195 ANTIBIOTICS) [place] [address](SNOM Repository ED CT) ENCOUNTERS ENCOUNTERS ADMIT/DISCHARGE ACCOUNT NUMBER ADMITTING ENCOUNTER LOCATION SOURCE CLASS 11/07/2018/11/07/19 [id number] Emergency BBuilding:KARISSA [address] Repository 11/05/2018 [id number] Ambulatory [facility] ding:LAB Repository 05/29/2018/05/30/20 [id number] Ambulatory [address] Repository 05/08/2018/05/12/20 [id number] Ambulatory [address] ding:DROP [facility] Repository 03/06/2018/03/06/20 [id number] Ambulatory [place] [address] ing:[facility] Repository 02/28/2018/03/04/20 [id number] Ambulatory [address] ding:DROP [facility] Repository 12/05/2017/12/05/19 [id number] Ambulatory [address] ding:RAD [facility] Repository 12/05/2017/12/05/19 [id number] Ambulatory [address] ding:RAD [facility] Repository 11/28/2017/12/21/19 [id number] Ambulatory [address] Repository PAYERS PAYERS ENCOUNTER GUARANTOR PAYER SUBSCRIBER SOURCE 11/07/2018 [facility]: [facility] [id number] [facility] [id number] Repository HOLLI INSCOPolicy Number: [address] [place], [place] [id number] [place], [place] [address]Hua: ([phone]) Date:2018-11-0788159Kvc: [id number] [phone] ()Tel: [phone] Name:TEXTILE [address] () (WP) [phone], [place] [phone] (WP) [phone]: 11/05/2018 NAOMI Julio Primary [facility] [place] [id number] [facility]: [facility] 31006Hsbyap [id number] Hospital [facility] [place] Number: Repository [id number]: [phone] [phone] (HP) Date:[id number], [place] [address]IP: 11/05/2018 Secondary NOT GIVENUNK Mykel Insurance:SELF PAY [facility] Number: Effective Repository Date:2018-11-05 05/08/2018 NAOMI Julio [facility] NETTLETONDOB: [facility] S17Cfhlok Number: [id number] Repository [place] [id number] 7 [facility] [place] Date:2018-05-08 - [place], [place] [address]Kmw: [phone] [phone]: Name:[facility] [phone] (HP)Tel: [phone], [place] (HP) (WP) [phone]: [phone] 03/06/2018 [facility] NETTLETONDOB: [facility] L24Zcycei Number: [id number] Repository [place] [id number] 7 [facility] [place] Date:2018-01-28 - [place], [place] [address]Itc: [phone] [id number]: Name:[facility] [phone] (HP)Tel: [phone], [place] (HP) (WP) [phone]: [phone] 02/28/2018 [facility] NETTLETONDOB: [facility] K31Ztuyfo Number: [id number] Repository [place] [id number] [address] [place], [place] Date:2018-02-28 - [place], [place] [address]Axb: [id number]: Name:TEXTILE BROKER [phone] (HP)Tel: [phone], [place] (HP) (WP) [phone]: [phone] 12/05/2017 [facility] Jul[facility] Insurance:[facility] NETTLETONDOB: [facility] T27Durhji Number: [id number] Repository [place] [id number] [address] [place], [place] Date:2017-11-28 - [place], [place] [address]Yzx: [id number]: Name:TEXTILE BROKER [phone] (HP)Tel: [phone], [place] (HP) (WP) [phone]: [phone] 12/05/2017 [facility]I Jul[facility] Insurance:[facility] NETTLETONDOB: [facility] V99Iwavdq Number: [id number] Repository [place] [id number] [address] [place], [place] Date:2017-11-28 - [place], [place] [address]Zdf: [id number]: Name:TEXTILE BROKER [phone] (HP)Tel: [phone], [place] (HP) (WP) [phone]: [phone]
== END ==
PROVIDERS: Family Provider Nurse Practitioner Primary Care; PCP Nurse Practitioner Primary Care; Referring Provider Otolaryngology; Visit Provider Otolaryngology
DX: T78.40XA Allergy, unspecified, initial encounter (principal)
CPT/HCPCS: 36415; 82785; 86003

== ENCOUNTER → 2019-11-13 17:11 | Outpatient (CLI) | payer OTHER, SELFPAY ==
[2019-05-11 13:59] VITALS: BMI 27.4
== END ==
PROVIDERS: PCP Nurse Practitioner Primary Care; Referring Provider Otolaryngology; Visit Provider Otolaryngology
DX: J32.9 Chronic sinusitis, unspecified (principal)
CPT/HCPCS: 87070; 87205

== ENCOUNTER → 2020-08-02 | Outpatient (CLI) | payer OTHER, SELFPAY ==
[2019-05-11 13:59] VITALS: BMI 27.4
== END | disposition home or self-care (01) ==
LOC: LABSPEC 15:34
PROVIDERS: PCP Nurse Practitioner Primary Care; Referring Provider Otolaryngology Otolaryngology/Facial Plastic Surgery; Visit Provider Otolaryngology Otolaryngology/Facial Plastic Surgery
DX: J32.9 Chronic sinusitis, unspecified (principal)
CPT/HCPCS: 87070; 87077; 87186; 87205

== ENCOUNTER → 2023-10-02 | Outpatient (CLI) | payer BC, SELFPAY ==
--- NOTE | 2023-10-02 07:17 | US_ITS ---
STUDY: ABDOMINAL ULTRASOUND REASON FOR EXAM: Female, 58 years old. ATTN: pancreas -- diabetes, -- luq pain TECHNIQUE: Transabdominal ultrasound was performed with real-time and static philip scale imaging. TECHNICAL QUALITY: Adequate. COMPARISON: None. FINDINGS: Liver: The liver measures 15.3 cm. There is normal echogenicity of the liver. The bile ducts are within normal limits. There is hepatic color flow. The direction of portal flow is hepatopetal. There is no demonstrated mass lesion. Gallbladder: The patient is status post cholecystectomy. Common Bile Duct (C.B.D.): The common bile duct measures 9.2 mm. Pancreas: Normal size of the head, body and tail of the pancreas. There is normal echogenicity of the pancreas. There is no demonstrated pancreatic mass or cyst. Spleen: Normal size of the spleen. The spleen measures 10 cm x 4.7 cm x 4.5 cm. Right Kidney: Normal size of the right kidney. The right kidney measures 10.4 cm x 4.8 cm x 3.6 cm. Normal renal cortex. The right cortex measures 1.2 cm. There is no demonstrated renal mass or cyst. There is no right hydronephrosis. Left Kidney: Normal size of the left kidney. The left kidney measures 10.4 cm x 3.6 cm x 4.2 cm. Normal renal cortex. The left cortex measures 1.5 cm. There is no demonstrated renal mass or cyst. There is no left hydronephrosis. Aorta: Unremarkable I.V.C.: The IVC is patent. There is no ascites. US/Abdomen Complete IMPRESSION: Status post cholecystectomy. Electronically Signed: Jf Downey MD at 14:25 EST ,
== END | disposition home or self-care (01) ==
LOC: US 07:13
PROVIDERS: PCP Internal Medicine Endocrinology, Diabetes & Metabolism; Visit Provider Internal Medicine Endocrinology, Diabetes & Metabolism
DX: R10.12 Left upper quadrant pain (principal)
CPT/HCPCS: 76700

== ENCOUNTER → 2024-11-10 | Outpatient (CLI) | payer OTHER, SELFPAY ==
[2024-11-10 12:50] LABS: Absolute Lymphocyte Count 1.53 X10^3/uL (0.83-4.51); Absolute Neutrophil Count 4.7 X10^3/uL (2.0-7.7); Basophil# 0.01 X10^3/uL; Basophil% 0.1 % (0-1); Eosinophil# 0.46 X10^3/uL; Eosinophils% 6.2 % (0-5); Hematocrit 45.4 % (37-47); Hemoglobin 14.7 g/dL (12.0-15.0); Lymphocyte # 1.53 X10^3/ul (0.83-4.51); Lymphocyte % 20.8 % (19-41); Mean Corp Hgb Conc 32.4 g/dL (32-36); Mean Corpuscular Hgb 28.3 pg (27.0-32.0); Mean Corpuscular Volume 87.5 fL (81-99); Mean Platelet Vol. 9.9 fl (6.2-12.0); Monocyte# 0.61 X10^3/uL; Monocyte% 8.3 % (0-10); NRBC Flagged by Analyzer 0 % (0-5); Neutrophil # 4.73 X10^3/uL (2.7-7.7); Neutrophil % 64.2 % (47-70); Platelet Count 188 K/mm3 (150-450); RBC Distribution Width CV 12.6 % (11.6-14.6); RBC Distribution Width SD 39.9 fl (35.1-43.9); Red Blood Count 5.19 M/mm3 (4.2-5.4); White Blood Count 7.4 K/mm3 (4.4-11.0)
[2024-11-13 23:07] LABS: Alternaria tenuis <0.10 kU/L (Class 0); Ash, White <0.10 kU/L (Class 0); Aspergillus fumigatus <0.10 kU/L (Class 0); Bermuda Grass <0.10 kU/L (Class 0); Birch <0.10 kU/L (Class 0); Black Walnut <0.10 kU/L (Class 0); Cat Hair / Dander,Stand <0.10 kU/L (Class 0); Cedar, Mountain <0.10 kU/L (Class 0); Cladosporium herbarum <0.10 kU/L (Class 0); Cockroach, American <0.10 kU/L (Class 0); Cottonwood <0.10 kU/L (Class 0); D farinae Mite <0.10 kU/L (Class 0); D pteronyssinus <0.10 kU/L (Class 0); Dog Epithelia <0.10 kU/L (Class 0); Elm, American White <0.10 kU/L (Class 0); Immunoglobulin E < 2 IU/mL (6-495); Maple/Box Elder <0.10 kU/L (Class 0); Mouse Urine <0.10 kU/L (Class 0); Mulberry, White <0.10 kU/L (Class 0); Oak, White <0.10 kU/L (Class 0); Pecan <0.10 kU/L (Class 0); Penicillium Notatum <0.10 kU/L (Class 0); Pigweed, Rough <0.10 kU/L (Class 0); Ragweed, Short/Common <0.10 kU/L (Class 0); Russian Thistle <0.10 kU/L (Class 0); Sheep Sorrel <0.10 kU/L (Class 0); Sycamore, American <0.10 kU/L (Class 0); Timothy Grass <0.10 kU/L (Class 0)
[2024-11-14 15:07] LABS: Aspirgillus flavus Negative (Neg:<1:1); Aspirgillus fumigatus Negative (Neg:<1:1); Aspirgillus niger Negative (Neg:<1:1); Cytoplasmic Ab (C-ANCA) <1:20 titer (Neg:<1:20); Immunoglobulin E < 2 IU/mL (6-495); Perinuclear Ab (P-ANCA) <1:20 titer (Neg:<1:20)
== END | disposition home or self-care (01) ==
LOC: LAB 12:19
PROVIDERS: PCP Nurse Practitioner Primary Care; Referring Provider Internal Medicine Critical Care Medicine; Visit Provider Internal Medicine Critical Care Medicine
DX: J45.909 Unspecified asthma, uncomplicated (principal)
CPT/HCPCS: 36415; 82785; 85025; 86003; 86037; 86606

== ENCOUNTER → 2024-12-15 | Outpatient (CLI) | payer OTHER, SELFPAY ==
[2024-12-15] MEDS: Methacholine Chloride 18 ml neb kit INHALATION (12:42)
== END | disposition home or self-care (01) ==
LOC: PSN 12:31
PROVIDERS: PCP Nurse Practitioner Primary Care; Referring Provider Internal Medicine Critical Care Medicine; Visit Provider Internal Medicine Critical Care Medicine
DX: J45.909 Unspecified asthma, uncomplicated (principal)
CPT/HCPCS: 94070; 95070

== ENCOUNTER → 2025-08-30 | Outpatient (CLI) | payer OTHER, SELFPAY ==
[2025-08-30 12:30] LABS: Creatinine, Urine (random) 22.70 mg/dL (28.00-217.00); Microalbumin,Random Urine 16.5 mg/L (<20 mg/L)
[2025-08-30 13:16] LABS: AST(SGOT) 27 U/L (<=31); Alanine Aminotransfer ALT/SGPT 14 U/L (<=34); Albumin, Serum 4.4 g/dL (3.5-5.0); Alkaline Phosphatase 66 U/L (35-104); Anion Gap 11 (5-15); BUN 14 mg/dL (4-19); BUN/Creat Ratio 15.8 RATIO (10-20); Calcium,Total 9.8 mg/dL (7.6-11.0); Carbon Dioxide 25.7 mmol/L (21.0-32.0); Chloride 101 mmol/L (98-108); Globulin 3.1 g/dL (2.2-4.2); Glucose 164 mg/dL (70-99); Potassium 4.6 mmol/L (3.3-5.1); Vitamin D,25 Hydroxy 54.2 ng/mL (30-100)
== END | disposition home or self-care (01) ==
PROVIDERS: PCP Nurse Practitioner Primary Care; Referring Provider Nurse Practitioner Family; Visit Provider Nurse Practitioner Family
DX: N18.9 Chronic kidney disease, unspecified (principal)
CPT/HCPCS: 36415; 80053; 82043; 82306; 82570